=== PATIENT | male | born 1975 | race Caucasian/White ===

== ENCOUNTER 2017-08-20 19:28 | Emergency (ER) | payer BC ==
[~2017-08-20] VITALS: Ht 177.8 cm; Wt 125.0 kg
[2017-08-20 21:24] LABS: BASOPHILS % 0.7 % (0.0-2.0); EOSINOPHILS % 2.9 % (0.0-5.0); HEMATOCRIT. 41.4 % (42.0-52.0); HEMOGLOBIN. 14.3 g/dL (14.0-18.0); LYMPHOCYTES % 28.9 % (20.0-50.0); MEAN CORPUSCULAR VOLUME 83.7 fL (80.0-94.0); MEAN PLATELET VOLUME 6.9 fl (7.4-10.4); MONOCYTES % 11.6 % (2.0-8.0); NEUTROPHILS % 55.9 % (40.0-76.0); PLATELET 303 x1000/uL (130-400); RED BLOOD CELL COUNT 4.94 mill/uL (4.7-6.1)
[2017-08-20 21:34] LABS: CHLORIDE 107 mEq/L (98-107)
[2017-08-20] MEDS ORDERED: LEVOFLOXACIN 250MG TABLET PO ONE (23:30)
[2017-08-20 23:41] VITALS: BP 147/80
== END 2017-08-20 23:48 | disposition home or self-care (01) ==
LOC: ER 21:38
DX: J18.9 Pneumonia, unspecified organism (principal); J01.90 Acute sinusitis, unspecified; Z88.0 Allergy status to penicillin
CPT/HCPCS: 36415; 70450; 71045; 80053; 85025; 93005; 99285; Z7610